=== PATIENT | female | born 1955 | race Caucasian/White ===

== ENCOUNTER 2018-05-10 04:32 | Emergency (ER) | payer SELFPAY ==
[~2018-05-10] VITALS: Ht 172.7 cm; Wt 154.2 kg
[2018-05-10] MEDS ORDERED: CALCIUM CHLOR(10%) 100MG/ML 10ML SYRINGE IV ONE (04:38)
[2018-05-10] MEDS ORDERED: EPINEPHrine HCL 1 MG/10 ML SYRG IV ONE (04:38)
[2018-05-10] MEDS ORDERED: SODIUM BICARBONATE 8.4% INJ 50ML SYRINGE IV ONE (04:38)
[2018-05-10 04:52] VITALS: BP 0/0
== END 2018-05-10 05:26 | disposition expired ==
LOC: ER 04:37
DX: I46.9 Cardiac arrest, cause unspecified (principal); J44.9 Chronic obstructive pulmonary disease, unspecified; I10 Essential (primary) hypertension
CPT/HCPCS: 92950; 99285; J0171